=== PATIENT | male | born 1995 | race African-American/Black ===

== ENCOUNTER 2017-09-15 11:50 | Emergency (ER) | payer OTHER ==
[~2017-09-15 11:50] MED LIST: AUGMENTIN 875-1 EAC1 ORAL; BACTRIM-DS1 EA ORAL; IBUPROFEN600 MG ORAL; KEFLEX500 MG ORAL; NKM; NORCO 5-325 TA1 EACH ORAL; NORCO 5-325 TA1 EACH PO; PHENERGAN SUPP25 MG RECTAL; ZOFRAN4 MG ORAL; ZOFRAN4 MG PO
--- NOTE | 2017-09-15 15:41 | Emergency Room Report ---
History of Present Illness General Chief Complaint: To Be Triaged Present Illness Allergies: Coded Allergies: No Known Allergies (Unverified , 03/28/13) Nursing Documentation-PMH Hx Cardiac Problems: No - MIGARINE Medical Decision Making Diagnostic Impression: Primary Impression: Patient left without being seen ER Course Patient left without being seen Status: unchanged Disposition: LEFT W/OUT BEING SEEN Condition: Unknown Referrals: NOT CHOSEN [facility]/,REFERRING (PCP) KRISTIAN PARMAR M.D. Sep 15, 2017 15:41
== END 2017-09-15 12:25 | disposition left against medical advice (07) ==
LOC: EMR 12:24
DX: Z53.21 Procedure and treatment not carried out due to patient leaving prior to being seen by health care provider (principal)
CPT/HCPCS: 99281

== ENCOUNTER 2017-10-30 09:57 | Emergency (ER) | payer OTHER ==
[~2017-10-30] VITALS: Ht 165.1 cm; Wt 68.0 kg
[2017-10-30 10:10] VITALS: BP 128/85
[2017-10-30] MEDS ORDERED: COLACE100 MG ORAL (10:41)
[2017-10-30] MEDS ORDERED: ANUSOL-HC25 MG RECTAL (10:41)
[2017-10-30 10:45] VITALS: BP 128/85
--- NOTE | 2017-10-30 14:02 | Emergency Room Report ---
History of Present Illness General Chief Complaint: Pain Source: Patient Present Illness HPI 21-year-old male presents ED for evaluation. States that he has a "boil" in his rectal area for the last 4 months. Patient states the last few days he's noticed bleeding from the rectal area. Mother is a nurse and told him he may have hemorrhoids. Denies any pain. States that he often has to push during bowel movements. No other aggravating relieving factors. Denies any other associated symptoms Allergies: Coded Allergies: No Known Allergies (Unverified , 03/28/13) Patient History Past Medical History: none Past Surgical History: none Pertinent Family History: none Social History: Denies: smoking, alcohol use, drug use Immunizations: UTD Reviewed Nursing Documentation: PMH: Agreed, PSxH: Agreed Nursing Documentation-PMH Hx Cardiac Problems: No - MIGARINE Review of Systems All Other Systems: negative except mentioned in HPI Physical Exam Vital Signs Date Time Temp Pulse Resp B/P (MAP) Pulse Ox O2 Delivery O2 Flow Rate FiO2 10/30/17 10:01 97.9 74 22 123/81 99 Room Air Sp02 EP Interpretation: reviewed, normal General Appearance: no apparent distress, alert, GCS 15, non-toxic Head: normocephalic, atraumatic Eyes: bilateral eye normal inspection, bilateral eye PERRL ENT: hearing grossly normal, normal pharynx, no angioedema, normal voice Neck: full range of motion, supple/symm/no masses Respiratory: chest non-tender, lungs clear, normal breath sounds, speaking full sentences Cardiovascular #1: regular rate, rhythm, no edema Cardiovascular #2: 2+ carotid (R), 2+ carotid (L), 2+ radial (R), 2+ radial (L) , 2+ dorsalis pedis (R), 2+ dorsalis pedis (L) Gastrointestinal: normal bowel sounds, non tender, soft, non-distended, no guarding, no rebound Rectal: hemorrhoids - external nonthrombosed Genitourinary: normal inspection, no CVA tenderness Musculoskeletal: back normal, gait/station normal, normal range of motion, non- tender Neurologic: alert, oriented x3, responsive, motor strength/tone normal, sensory intact, speech normal Psychiatric: judgement/insight normal, memory normal, mood/affect normal, no suicidal/homicidal ideation Reflexes: 3+ bicep (R), 3+ bicep (L), 3+ tricep (R), 3+ tricep (L), 3+ knee (R) , 3+ knee (L) Skin: normal color, no rash, warm/dry, well hydrated Lymphatic: no adenopathy Medical Decision Making Diagnostic Impression: Primary Impression: Hemorrhoids Qualified Codes: K64.9 - Unspecified hemorrhoids ER Course Hospital Course 21-year-old male presenting to ED complaining of rectal bleeding Differential diagnoses include: internal hemorrhoids, external hemorrhoids, anal fissure, constipation Clinical course Patient placed on stretcher in ED. After initial history physical exam reveals a young male in no acute distress. Upon rectal exam there is good rectal tone. external hemorrhoids noted. nonthrombosed I discussed findings with the patient. Explained that treatment will include stools of nurse and suppositories. Given that the hemorrhoids are not thrombosed and had been there for several months there is no indication for excision in the emergency room. Patient will require surgical consultation to have the hemorrhoids removed. Diagnosis - hemorrhoids Stable and discharged to home with prescription for Anusol suppository, Colace. Instructed to take warm soaks in top 3 times a day for 10-15 minutes. Patient instructed to followup with PMD/surgery. Patient instructed to return to ED if symptoms recur or worsen Last Vital Signs Date Time Temp Pulse Resp B/P (MAP) Pulse Ox O2 Delivery O2 Flow Rate FiO2 10/30/17 10:45 97.9 78 22 128/85 99 Room Air Status: improved Disposition: HOME, SELF-CARE Condition: Stable Scripts Docusate Sodium* (COLACE*) 100 Mg Capsule 100 MG ORAL THREE TIMES A DAY for 30 Days, CAP Prov: KRISTIAN PARMAR M.D. 10/30/17 Hydrocortisone Acetate* (ANUSOL-HC*) 25 Mg Supp.rect 1 SUPP RECTAL TWICE A DAY for 10 Days, SUPP Prov: KRISTIAN PARMAR M.D. 10/30/17 Patient Instructions: Hemorrhoids, [id number] KRISTIAN PARMAR M.D. Oct 30, 2017 14:02
== END 2017-10-30 10:45 | disposition home or self-care (01) ==
LOC: EMR 10:30
DX: K64.4 Residual hemorrhoidal skin tags (principal)
CPT/HCPCS: 99284

== ENCOUNTER 2021-02-08 13:40 | Emergency (ER) | payer OTHER ==
[~2021-02-08] VITALS: Ht 165.1 cm; Wt 68.0 kg
[~2021-02-08 13:40] MED LIST changes: +ANUSOL-HC25 MG RECTAL; +ANUSOL-HC30 GM RC; +COLACE100 MG ORAL
--- NOTE | 2021-02-08 14:00 | NUR ---
ED Nurse Note: Patient from home and walked in due to hemorrhoids. Per patient he was lifting a heavy object at work then he went to the rest room and had blood on his underwear. Patient is AAO x4, ambulatory with non labored breathing.
--- NOTE | 2021-02-08 14:42 | NUR ---
pt in room. medicated per eMAR. pt denies pain at this time. will continue to monitor. all labs sent to lab.
[2021-02-08 15:01] LABS: ANION GAP 9 mmol/L (5-15); BLOOD UREA NITROGEN 20 mg/dL (7-18); CALCIUM 9.7 MG/DL (8.5-10.1); CARBON DIOXIDE 30 MMOL/L (21-32); CHLORIDE 102 MMOL/L (98-107); CREATININE 1.2 MG/DL (0.55-1.30); POTASSIUM 3.9 MMOL/L (3.5-5.1); SODIUM 140 MMOL/L (136-145)
[2021-02-08 15:06] LABS: ALANINE AMINOTRANSFERASE 24 U/L (12-78); ALBUMIN 4.2 G/DL (3.4-5.0); ALBUMIN/GLOBULIN RATIO 1.4 (1.0-2.7); ALKALINE PHOSPHATASE 60 U/L (46-116); ASPARTATE AMINO TRANSFERASE 15 U/L (15-37); BILIRUBIN,TOTAL 0.2 MG/DL (0.2-1.0)
[2021-02-08 15:07] LABS: BASOPHILS % (AUTO) 0.7 % (0.0-2.0); HEMATOCRIT 43.1 % (42.0-52.0); HEMOGLOBIN 14.2 G/DL (14.2-18.0); LYMPHOCYTES % (AUTO) 25.5 % (20.0-45.0); MEAN CORPUSCULAR VOLUME 97 FL (80-99); MONOCYTES % (AUTO) 7.3 % (1.0-10.0); NEUTROPHILS % (AUTO) 64.6 % (45.0-75.0); PLATELET COUNT 160 K/UL (150-450); RED BLOOD COUNT 4.42 M/UL (4.70-6.10); RED CELL DISTRIBUTION WIDTH 12.8 % (11.6-14.8); WHITE BLOOD COUNT 9.4 K/UL (4.8-10.8)
[2021-02-08 15:11] LABS: APPEARANCE,URINE CLEAR; BILIRUBIN, URINE NEGATIVE (NEGATIVE); COLOR,URINE PALE YELLOW; GLUCOSE, URINE (UA) NEGATIVE (NEGATIVE); KETONES,URINE NEGATIVE (NEGATIVE); LEUKOCYTE ESTERASE ,URINE 1+ (NEGATIVE); NITRITE,URINE NEGATIVE (NEGATIVE); PH,URINE 6.5 (4.5-8.0); PROTEIN,URINE NEGATIVE (NEGATIVE); UROBILINOGEN,URINE NORMAL MG/DL (0.0-1.0)
--- NOTE | 2021-02-08 15:47 | Diagnostic Imaging Report ---
Clinical Indication: Pain, lower GI bleed Technique: No oral contrast utilized, per emergency room physician request IV administration nonionic contrast. Venous phase spiral acquisition obtained through the abdomen and pelvis. Multiplanar reconstructions were generated. Total dose length product 196 mGycm. CTDIvol(s) 3 mGy. Dose reduction achieved using automated exposure control Comparison: none Findings: No evidence of diverticulosis or diverticulitis. The appendix is only questionably visualized, but no findings to suggest acute appendicitis are evident. No free or loculated peritoneal gas or fluid is evident. Distal esophagus, stomach, duodenum are unremarkable. The liver, gallbladder, bile ducts, pancreas, spleen, adrenals, kidneys are unremarkable. No retroperitoneal or mesenteric mass or adenopathy. No pelvic mass or adenopathy. No renal or ureteral calculi, hydronephrosis, nor hydroureter. The included lung bases are clear. The bones are unremarkable. Impression: Negative The CT scanner at [facility] is accredited by the [employer] and the scans are performed using protocols designed to limit radiation exposure to as low as reasonably achievable to attain images of sufficient resolution adequate for diagnostic evaluation.
--- NOTE | 2021-02-08 15:58 | Emergency Room Report ---
History of Present Illness General Chief Complaint: Pain Source: Patient Present Illness HPI 25-year-old male with history of recurrences of thrombosed hemorrhoids here complaining of excess amount of rectal bleeding after lifting heavy [place] at work and immediately having pain and pressure at the site of his hemorrhoid with menstrual bleeding. Reports that he usually takes a stool softener. Reports that he has not done any dietary changes and does not consume enough fiber. Denies nausea vomiting and diffuse abdominal pain. Denies any pain at this time. Has not yet followed up with technical manager. Denies any fall or injury. Allergies: Coded Allergies: No Known Allergies (Unverified , 03/28/13) COVID-19 Screening Contact w/high risk pt: No Experienced COVID-19 symptoms?: No COVID-19 Testing performed REMEDIATION [employer] CONSULTANT: Yes COVID-19 Screening: Negative COVID-19 COVID-19 Testing Source: [employer] Patient History Past Medical History: see triage record Past Surgical History: none Pertinent Family History: none Reviewed Nursing Documentation: PMH: Agreed; PSxH: Agreed Nursing Documentation-PMH Past Medical History: No History, Except For Hx Cardiac Problems: No - MIGRAINE Hx Gastrointestinal Problems: No - hemmorhoids Review of Systems All Other Systems: negative except mentioned in HPI Physical Exam Vital Signs Date Time Temp Pulse Resp B/P (MAP) Pulse Ox O2 Delivery O2 Flow Rate FiO2 02/08/21 13:50 98.1 63 16 133/78 (96) 95 Room Air Sp02 EP Interpretation: reviewed, normal General Appearance: no apparent distress, alert, GCS 15, non-toxic Head: normocephalic, atraumatic Eyes: bilateral eye normal inspection, bilateral eye PERRL ENT: hearing grossly normal, normal pharynx, no angioedema, normal voice Neck: supple, thyroid normal, no meningismus, no bony tend, no carotid bruits Respiratory: no rhonchi, no respiratory distress, no retraction, no accessory muscle use, no wheezing Cardiovascular #1: regular rate, rhythm, no edema, no gallop, no JVD, no murmur Gastrointestinal: non tender, soft, no mass, no organomegaly, no peritonitis Rectal: other - Appears to have had a thrombosed hemorrhoid however no distress and external hemorrhoid minimal bleeding noted no pus drainage noted Genitourinary: no CVA tenderness Musculoskeletal: back normal Neurologic: alert, motor strength/tone normal, oriented x3, sensory intact, responsive, speech normal Psychiatric: judgement/insight normal, memory normal, mood/affect normal, no suicidal/homicidal ideation Skin: no rash Lymphatic: no adenopathy Medical Decision Making PA Attestation All my diagnosis and treatment plans were reviewed ad discussed with my supervising physician Dr. Anguiano Diagnostic Impression: Primary Impression: Bleeding hemorrhoid ER Course 25-year-old male with history of recurrences of thrombosed hemorrhoids here complaining of excess amount of rectal bleeding after lifting heavy [place] at work and immediately having pain and pressure at the site of his hemorrhoid with menstrual bleeding. Reports that he usually takes a stool softener. Reports that he has not done any dietary changes and does not consume enough fiber. Denies nausea vomiting and diffuse abdominal pain. Denies any pain at this time. Has not yet followed up with technical manager. Denies any fall or injury. Ddx considered but are not limited to: Melena, diverticulitis, diverticulosis, internal hemorrhoid, external hemorrhoid, thrombosed hemorrhoid Vital signs: are WNL, pt. is afebrile H&PE are most consistent with: Bleeding hemorrhoid ORDERS: abdominal CT, UA, CBC, CMP, Anusol cream, Bactrim DS, ibuprofen ED INTERVENTIONS: NS bolus DISCHARGE: At this time pt. is stable for d/c to home. Will provide printed patient care instructions, and any necessary prescriptions. Care plan and follow up instructions have been discussed with the patient prior to discharge. Follow-up with technical manager, take medication as directed, avoid lifting heavy objects, if worsening symptoms return to the emergency room also educated patient on need taking more fiber. CT/MRI/US Diagnostic Results CT/MRI/US Diagnostic Results : Imaging Test Ordered: CT abdomen pelvis with contrast Impression Comparison: none Findings: No evidence of diverticulosis or diverticulitis. The appendix is only questionably visualized, but no findings to suggest acute appendicitis are evident. No free or loculated peritoneal gas or fluid is evident. Distal esophagus, stomach, duodenum are unremarkable. The liver, gallbladder, bile ducts, pancreas, spleen, adrenals, kidneys are unremarkable. No retroperitoneal or mesenteric mass or adenopathy. No pelvic mass or adenopathy. No renal or ureteral calculi, hydronephrosis, nor hydroureter. The included lung bases are clear. The bones are unremarkable. Impression: Negative Last Vital Signs Date Time Temp Pulse Resp B/P (MAP) Pulse Ox O2 Delivery O2 Flow Rate FiO2 02/08/21 13:50 98.1 63 16 133/78 (96) 95 Room Air Disposition: HOME, SELF-CARE Condition: Stable Scripts Trimethoprim/Sulfamethoxazole 160/800* (BACTRIM DS TABLET*) 1 Each Tablet 1 TAB ORAL TWICE A DAY for 7 Days, #14 TAB Prov: Justyna Salmon 02/08/21 Ibuprofen (Ibu) 800 Mg Tablet 800 MG PO BID, #30 TAB Prov: Justyna Salmon 02/08/21 Hydrocortisone Hc 2.5% Cream (ANUSOL-HC 2.5% CREAM) Y Cr 30 GM RC BID, #30 GM Prov: Justyna Salmon 02/08/21 Referrals: NOT CHOSEN IPA/,REFERRING (PCP) Patient Instructions: Hemorrhoids Additional Instructions: Take medication as directed, follow with your primary care provider and technical manager, increase your fiber intake, worsening symptom return to the emergency Justyna Salmon Feb 08, 2021 15:58
[2021-02-08] MEDS ORDERED: BACTRIM DS TAB1 EAC1 ORAL (16:08)
[2021-02-08] MEDS ORDERED: IBU800 MG PO (16:08)
[2021-02-08] MEDS ORDERED: ANUSOL-HC30 GM RC (16:08)
[2021-02-08 16:17] VITALS: BP 137/88
--- NOTE | 2021-02-08 16:18 | NUR ---
ED Nurse Note: Pt cleared by health care Provider for discharge. DC instructions/prescription was given and explained to pt and verbalized understanding of teachings. All medical deviecs such as ID band removed. Pt is AAO x4, ambulatory and left with all personal belongings.
== END 2021-02-08 16:18 | disposition home or self-care (01) ==
LOC: EMR 14:25
DX: K64.9 Unspecified hemorrhoids (principal)
CPT/HCPCS: 36415; 74177; 80053; 81003; 85025; 85610; 85730; 96360; 99284; Q9965